=== PATIENT | male | born 1950 | race Caucasian/White ===

== ENCOUNTER → 2019-10-04 | Outpatient (CLI) | payer MEDICARE, BC ==
[~2019-10-04] MED LIST: LISINOPRIL-HCT1 EACH PO; ULTRAM50 MG PO
--- NOTE | 2019-10-05 09:16 | Diagnostic Imaging Report ---
EXAMINATION: CT of the abdomen and pelvis without contrast. TECHNIQUE: Spiral CT images of the abdomen and pelvis were performed from the lung bases to the lesser trochanters. No intravenous contrast was given per renal stone protocol. Coronal and sagittal reformatted images were obtained. COMPARISON: None. CLINICAL HISTORY:Left flank pain, hematuria DISCUSSION: ABSENCE OF INTRAVENOUS CONTRAST DECREASES SENSITIVITY FOR DETECTION OF FOCAL LESIONS AND VASCULAR PATHOLOGY. ABDOMEN/PELVIS: LOWER THORAX: Bandlike opacities in the right middle lobe, lingula, and left lower lobe may reflect subsegmental atelectasis or fibrotic change. Lung bases are otherwise unremarkable. HEPATOBILIARY:No focal hepatic lesions. No intrahepatic biliary ductal dilation. The gallbladder is unremarkable. SPLEEN: No splenomegaly or focal splenic lesion. PANCREAS: No focal masses or ductal dilatation. ADRENALS: No adrenal nodules. KIDNEYS/URETERS: 2 mm nonobstructing right upper pole renal calculus. No additional renal, ureteral, or bladder calculi. No hydronephrosis. No gross renal mass lesion. PELVIC ORGANS/BLADDER: Limited evaluation secondary to beam hardening artifact from left hip prosthesis. Coarse prostatic calcifications. PERITONEUM/RETROPERITONEUM: No ascites or pneumoperitoneum. LYMPH NODES: No pelvic sidewall, retroperitoneal, or mesenteric lymphadenopathy. Mildly prominent, single nonspecific robert hepatis lymph node measures 1.4 cm short axis. VESSELS: Limited evaluation in the absence of intravenous contrast. The abdominal aorta is nonaneurysmal. Atherosclerotic calcifications along the abdominal aorta and visualized branch vessels. 2 renal arteries supply each kidney. GI TRACT: The large bowel shows no evidence of distention or wall thickening. There are a few diverticula scattered along the course of the sigmoid colon without wall thickening or adjacent inflammatory change. Normal appendix. Stomach is collapsed with prominent rugal folds. No small bowel dilatation to suggest obstruction. BONES AND SOFT TISSUES: Postsurgical changes of total left hip arthroplasty. No osseous destructive lesions. Hemangioma in the T10 vertebral body to the right of midline. Degenerative disc changes and facet arthropathy of the lower lumbar spine. IMPRESSION: 2 mm nonobstructing right renal calculus. No left renal calculi in this patient with reported history of left flank pain Large bowel diverticulosis without CT findings of diverticulitis. Atherosclerotic vascular disease. Signed by: Dr. Cedrick Brandon M.D. on 10/05/2019 9:13 AM
== END ==
LOC: CT 16:13
PROVIDERS: ATTEND Internal Medicine
DX: N30.01 Acute cystitis with hematuria (principal)
CPT/HCPCS: 74176

== ENCOUNTER → 2020-01-17 | Day surgery (SDC) | payer MEDICARE, BC ==
[2020-01-12 11:45] LABS: BASOPHILS # (AUTO) 0.1 (0.0-0.1); BASOPHILS % 0.9 % (0.0-1.0); EOSINOPHILS # (AUTO) 0.2 (0.0-0.4); HEMATOCRIT 37.3 % (38.2-49.6); LYMPHOCYTES # (AUTO) 3.5 (1.0-3.2); LYMPHOCYTES % 43.1 % (18.0-39.1); MEAN CORPUSCULAR HEMOGLOBIN 32.4 pg (28-32); MEAN CORPUSCULAR HGB CONC 34.9 g/dL (31-35); MONOCYTES # (AUTO) 0.5 (0.2-0.8); MONOCYTES % 6.4 % (4.4-11.3); NEUTROPHILS # (AUTO) 3.8 (2.1-6.9); NEUTROPHILS % 46.2 % (38.7-80.0); PLATELET COUNT 263 x10e3/uL (140-360); RED BLOOD COUNT 4.01 x10e6/uL (4.3-5.7); RED CELL DISTRIBUTION WIDTH 12.3 % (11.7-14.4)
[2020-01-12 11:59] LABS: INR 0.91; PROTHROMBIN TIME 12.7 seconds (11.9-14.5)
[2020-01-12 12:00] LABS: PARTIAL THROMBOPLASTIN TIME 28.7 seconds (23.8-35.5)
[2020-01-12 12:04] LABS: ANION GAP 15.6 mmol/L (8-16); CALCIUM 9.2 mg/dL (8.4-10.2); CREATININE, SERUM 1.2 mg/dL (0.72-1.25); POTASSIUM 3.6 mmol/L (3.5-5.1)
--- NOTE | 2020-01-12 12:25 | Diagnostic Imaging Report ---
EXAMINATION: CHEST 2 VIEWS INDICATION: Pre-operative COMPARISON: None FINDINGS: LINES/TUBES:None LUNGS:The lungs are well-inflated. No focal consolidation or pulmonary edema. PLEURA:No pleural effusion or pneumothorax. MEDIASTINUM:The cardiomediastinal silhouette appears normal in size and shape. BONES/SOFT TISSUES:No acute osseous injury. ABDOMEN:No free air under the diaphragm. IMPRESSION: No focal pneumonia or pulmonary edema. Signed by: Aurora Shane MD on 01/12/2020 12:22 PM
[~2020-01-17] MED LIST changes: +AMLODIPINE-VAL1 EAC1 PO; +CEFAZOLIN SOD 1 GM/NS 50ML 100 ML IV ONE; +DEXAMETHASONE SOD PHOS INJ 4 MG/ML VIAL ONE; +FENTANYL CITRATE/PF 100MCG/2 ML INJ ONE; +HYDROCHLOROTHIA25 MG PO; +HYDROCODONE/APAP 5MG-325MG TAB ONE; +HYDROCODONE/APAP 7.5MG-325MG 1 EA TAB ONE; +HYDROMORPHONE 2MG/ML 2 MG/ML ML ONE; +KETOROLAC TROMETHAMINE 30 MG/ML VIAL ONE; +LIDOCAINE HCL 2% LOCAL 20 ML VIAL ONE; +LIDOCAINE HCL 2% LOCAL INJ 5 ML SDV VIAL INJ ONE; +MIDAZOLAM HCL 2 MG/2 ML VIAL ONE; +ONDANSETRON HCL INJ 2MG/ML 2ML 2 MG/ML VIAL ONE; +PROPOFOL IV EMULSION 10 MG/ML 20 ML VIAL ONE; +ROPIVACAINE 0.5% 5 MG/ML 30 ML SDV ONE; +ROPIVACAINE 246.25 MG, EPINEPHRINE HCL 1:1000 1ML 0.5 MG, CLONIDINE HCL 0.08 MG, KETORO... INJ ONE; +SEVOFLURANE INHAL SOLN 250 ML PEN BTL ONE; +TRANEXAMIC ACID 1,000 MG/10 ML ML ONE; +TYLENOL325 M2 PO
--- NOTE | 2020-01-17 09:28 | Diagnostic Imaging Report ---
Radiographs of the right knee - 2 views postop portable HISTORY: Pain. Total knee replacement. Right-sided. COMPARISON: None available. FINDINGS: Bones: No acute displaced fracture. Osseous alignment is within normal limits. Joints: Patient status post right knee replacement with associated postsurgical change. The surgical hardware is intact without evidence of failure or loosening. The lateral image is labeled with a left marker which is likely a labeling error. Soft tissues: The soft tissues appear unremarkable. IMPRESSION: Patient status post right knee replacement with associated postsurgical change. The surgical hardware is intact without evidence of failure or loosening. The lateral image is labeled with a left marker which is likely a labeling error. Signed by: Dr. Cortes Thompson M.D. on 01/17/2020 9:25 AM
--- NOTE | 2020-01-17 14:24 | Operative Report ---
DATE OF PROCEDURE: 01/17/2020 SURGEON: JALIL STRINGER MD PLACE OF SURGERY: [facility]. HISTORY: Mr. Talamantes is a 69-year-old male with a significant end-stage degenerative joint disease of the right knee with a marked varus deformity. The patient elected to forgo any further conservative treatment and proceed on with a right total knee arthroplasty. The risks and benefits of surgery have been outlined to him consisting, but not limited to the following: Infection, blood loss, nerve, blood vessel or tendon injury, DVT, ongoing pain, stiffness, leg-length discrepancy as well as nerve injury to include possible peroneal nerve neurapraxia or palsy. Informed consent was obtained. The patient was seen and identified in the preop holding area and the right knee was marked by myself. The risks and benefits of the above were discussed with the patient once again and he agrees. The patient was given a preoperative regional block by Anesthesia and then brought back to the operative suite. Time-out was taken for Mr. Raul Talamantes for a right total knee arthroplasty. All were in agreement including nursing staff, Anesthesia, and myself. The patient was then given a successful general intubation anesthetic and transferred over to the operative table. A nonsterile tourniquet was placed high in the right upper thigh. Right lower extremity was then sterilely prepped and draped in the usual sterile fashion. The limb was exsanguinated. Tourniquet was inflated up to approximately 250 mmHg. Upon examination under anesthesia prior to the incision, the patient did have a slight flexion contracture. Again, varus deformity was markedly noted. The initial 10 Bard-Nate blade was then used to make the initial skin incision starting from the superior pole of the patella extending down to the tibial tuberosity. Subcutaneous bleeding was controlled using a needle Bovie tip. A second knife was used to make an incision making the medial arthrotomy. Degenerative joint fluid was suctioned out and the patella was then carefully everted and the knee flexed up protecting the patellar tendon at all times. The patient had complete eburnated bone loss with some slight scalloping of the plateau. Marked bony osteophytes were noted. A rongeur was then used to remove the marked bony osteophytes. The remnants of medial and lateral meniscus were resected as well as the remnant ACL and PCL was found to be intact. All the bony osteophytes were removed using a rongeur. Upon which time, the medial and lateral retractors were placed in protecting the medial and lateral collateral ligaments at all times. Femoral component: Attention was then turned to the femur. The drill guide was used to make the entry point for the intramedullary femoral guide, which was also placed in. A resection cut was made of the distal femur in 3 degrees external rotation and 5 degrees of valgus. The femur was then sized to a #5. The #5, 4-in-1 cutting block was impacted in. An oscillating saw was then used to complete the anterior-posterior cuts and then subsequently the anterior and posterior chamfer cuts were completed. A size #5 right CR femoral component was trialed, had an excellent fit circumferentially, anterior and posterior as well as medial to lateral. Attention was then turned to the tibial side. The extramedullary tibial guide was placed in and placed in alignment with regard to the proximal third of tibial tuberosity as well as the tibial shaft and distal ankle joint. However, given the marked varus deformity, we did a second intramedullary tibial guide to confirm the resection of the tibia measuring off the high lateral side. A dissection was made with a posterior 5-degree slope. The bony osteophytes were removed and the tibia was sized to a #5. The #5 universal base plate was applied using 4 alignment rods proximally and distally with the knee at full extension. Alignment was confirmed. The varus deformity was corrected. The tibial punch and keel were then completed. We did a trial reduction with a 9, 11, and 13 mm poly, and a 9 mm poly gave the most stable fit allowing full extension on zero correcting the flexion contracture as well as allowing full flexion past 130 degrees. No varus or valgus instability noted. Patellar component: Attention was then turned to the patellar side. The patella was resected to approximately 14 to 16 mm. The patella was sized to 35. A 35 asymmetric patella was then correctly lateralized. Upon range of motion testing, the patella had excellent patellofemoral tracking throughout the entire arc of motion. The trial components were removed and copious irrigation was carried out with 6 L antibiotic saline solution. After copious irrigation, the MARNI 100 mL of cocktail mixture was injected in the posterior capsule. First and second final counts were found to be correct. Antibiotic cement was prepared on the back table and the final components were placed in consisting of a [place] triathlon #5 CR right femur, #5 universal tibial baseplate with a 35 asymmetric patella with a 5 x 9 CS poly insert. All the excess cement was removed. The knee was allowed to harden on full extension. Upon which time, the copious irrigation was carried out one last time and the final counts were found to be correct. The tourniquet was released. There was no acute pulsatile bleeding noted. The medial arthrotomy was closed using 5 Ethibond and layer closure of 0 Vicryl, 2-0 Vicryl, and skin reapproximated with teodoro. The patient was placed in Xeroform compressive dressing and subsequently transferred to the PACU in stable condition. PREOPERATIVE DIAGNOSES: Severe degenerative joint disease of the right knee with varus deformity. POSTOPERATIVE DIAGNOSIS: Severe degenerative joint disease of the right knee with varus deformity. PROCEDURES: 1. Right total knee arthroplasty with the following components: [place] triathlon CR right femur, #5 universal tibial base plate, 35 asymmetric patella, 5 x 9 mm CS poly insert. 2. MARNI injection of the right knee. ANESTHESIA: Regional block with general intubation anesthetic. ESTIMATED BLOOD LOSS: Less than 100 mL. SPECIMENS: Bones and soft tissue. COMPLICATIONS: None. CONDITION: Stable to PACU. INTRAOPERATIVE FINDINGS: Severe DJD of the right knee, tricompartmental. The patient was seen in PACU. Dressings were clean and dry. Capillary refills were brisk. Pain is well controlled. The intraoperative findings were reviewed and discussed with his , and wound care instructions were given. We will determine the patient's ability for discharge home today. The patient discharged home with Keflex as well as [place] along with Lovenox. Wound care instruction also reviewed with nursing staff. The patient to follow up in 2 weeks for a wound check and staple removal. Outpatient therapy is to begin tomorrow. MD FOUZIA FELIX/ALEXIS /[id number]
[2020-01-17 14:40] VITALS: BP 136/78
== END | disposition home or self-care (01) ==
LOC: OR 05:19
PROVIDERS: ATTEND Orthopaedic Surgery
DX: M17.11 Unilateral primary osteoarthritis, right knee (principal); M25.761 Osteophyte, right knee; M21.161 Varus deformity, not elsewhere classified, right knee; G47.33 Obstructive sleep apnea (adult) (pediatric); I10 Essential (primary) hypertension; Z88.6 Allergy status to analgesic agent; Z91.013 Allergy to seafood; Z01.812 Encounter for preprocedural laboratory examination; Z01.818 Encounter for other preprocedural examination; Z11.59 Encounter for screening for other viral diseases; Z68.34 Body mass index [BMI] 34.0-34.9, adult; Z87.891 Personal history of nicotine dependence
CPT/HCPCS: 27447; 36415; 71046; 73560; 80048; 85025; 85610; 85730; 86850; 86900; 86920; 97110; 97116; 97161; 97530; C1713 ×3; C1776 ×2; J0171; J0690; J1100; J1170; J1885; J2001 ×2; J2250; J2405; J2704; J2795; J3010; U0002

== ENCOUNTER 2020-01-24 14:00 | Outpatient (RCR) | payer MEDICARE, BC ==
[~2020-01-24 14:00] MED LIST changes: -CEFAZOLIN SOD 1 GM/NS 50ML 100 ML IV ONE; -DEXAMETHASONE SOD PHOS INJ 4 MG/ML VIAL ONE; -FENTANYL CITRATE/PF 100MCG/2 ML INJ ONE; -HYDROCODONE/APAP 5MG-325MG TAB ONE; -HYDROCODONE/APAP 7.5MG-325MG 1 EA TAB ONE; -HYDROMORPHONE 2MG/ML 2 MG/ML ML ONE; -KETOROLAC TROMETHAMINE 30 MG/ML VIAL ONE; -LIDOCAINE HCL 2% LOCAL 20 ML VIAL ONE; -LIDOCAINE HCL 2% LOCAL INJ 5 ML SDV VIAL INJ ONE; -MIDAZOLAM HCL 2 MG/2 ML VIAL ONE; -ONDANSETRON HCL INJ 2MG/ML 2ML 2 MG/ML VIAL ONE; -PROPOFOL IV EMULSION 10 MG/ML 20 ML VIAL ONE; -ROPIVACAINE 0.5% 5 MG/ML 30 ML SDV ONE; -ROPIVACAINE 246.25 MG, EPINEPHRINE HCL 1:1000 1ML 0.5 MG, CLONIDINE HCL 0.08 MG, KETORO... INJ ONE; -SEVOFLURANE INHAL SOLN 250 ML PEN BTL ONE; -TRANEXAMIC ACID 1,000 MG/10 ML ML ONE
== END 2020-01-25 ==
LOC: PT 14:00
PROVIDERS: ATTEND Orthopaedic Surgery
DX: Z96.651 Presence of right artificial knee joint (principal); M17.11 Unilateral primary osteoarthritis, right knee; M25.461 Effusion, right knee; M25.561 Pain in right knee; M25.661 Stiffness of right knee, not elsewhere classified

== ENCOUNTER 2020-02-24 14:00 | Outpatient (RCR) | payer MEDICARE, BC | END 2020-02-25 | LOC: PT 14:00 | PROVIDERS: ATTEND Orthopaedic Surgery | DX: Z96.651 Presence of right artificial knee joint (principal); M17.11 Unilateral primary osteoarthritis, right knee; M25.461 Effusion, right knee; M25.561 Pain in right knee; M25.661 Stiffness of right knee, not elsewhere classified ==

== ENCOUNTER → 2020-03-26 | Outpatient (RCR) | payer MEDICARE, BC | LOC: PT 02-27 14:03 | PROVIDERS: ATTEND Orthopaedic Surgery | DX: M17.11 Unilateral primary osteoarthritis, right knee (principal); M25.461 Effusion, right knee; M25.561 Pain in right knee; M25.661 Stiffness of right knee, not elsewhere classified | CPT/HCPCS: 97139 ==

== ENCOUNTER 2020-03-28 14:28 | Outpatient (RCR) | payer MEDICARE, BC | END 2020-04-26 | LOC: PT 14:28 | PROVIDERS: ATTEND Orthopaedic Surgery | DX: Z96.651 Presence of right artificial knee joint (principal); M17.11 Unilateral primary osteoarthritis, right knee; M25.561 Pain in right knee; M25.461 Effusion, right knee; M25.661 Stiffness of right knee, not elsewhere classified ==